=== PATIENT | female | born 1995 | race African-American/Black ===

== ENCOUNTER 2023-02-02 01:42 | Emergency (ER) | payer MEDICAID, OTHER ==
[~2023-02-02] VITALS: Ht 162.6 cm; Wt 68.0 kg
[2023-02-02 02:02] VITALS: TEMP 98.4; O2SAT 99
[2023-02-02] MEDS ORDERED: IBUPROFEN 600MG TABLET PO STA (04:13)
[2023-02-02 04:22] VITALS: BP 148/82; PULSE 111; RESP 18
[2023-02-02 04:39] LABS: BASOPHILS % 0.5 % (0.0-2.0); EOSINOPHILS % 0.5 % (0.0-5.0); HEMATOCRIT. 39.9 % (36.0-48.0); HEMOGLOBIN. 12.9 g/dL (12.0-16.0); LYMPHOCYTES % 36.6 % (20.0-50.0); MEAN CORPUSCULAR HEMOGLOBIN 29.5 pg (28.0-32.0); MEAN CORPUSCULAR HGB CONC 32.3 g/dL (31.0-37.0); MEAN CORPUSCULAR VOLUME 91.4 fL (81.0-99.0); MEAN PLATELET VOLUME 7.1 fl (7.4-10.4); MONOCYTES % 9.6 % (2.0-8.0); NEUTROPHILS % 52.8 % (40.0-76.0); PLATELET 347 x1000/uL (130-400); RED BLOOD CELL COUNT 4.37 mill/uL (4.2-5.4); RED CELL DISTRIBUTION WIDTH 13.2 % (11.6-14.6); WHITE BLOOD COUNT 5.6 x1000/uL (4.5-11.0)
[2023-02-02 04:47] LABS: CALCIUM 9.1 mg/dL (8.5-10.1); CHLORIDE 105 mEq/L (98-107); INDEX HEMOLYSI 1 (1-3); INDEX ICTERIC 1 (1-4); INDEX LIPEMIC 1 (1-3); POTASSIUM 3.6 mEq/L (3.5-5.1); SODIUM 138 mEq/L (136-145)
[2023-02-02 04:51] LABS: CARBON DIOXIDE 28 mEq/L (21-32); CREATININE 0.8 mg/dL (0.6-1.3); GLUCOSE 89 mg/dL (70-105); UREA NITROGEN BLOOD 16 mg/dL (7-21)
[2023-02-02 04:54] LABS: HCG SCREEN NEGATIVE
== END 2023-02-02 05:13 | disposition left against medical advice (07) ==
LOC: ER 01:42
DX: M79.603 Pain in arm, unspecified (principal); Z53.21 Procedure and treatment not carried out due to patient leaving prior to being seen by health care provider
CPT/HCPCS: 80048; 84703; 85025; 36415; 71045; 99281; Z7610

== ENCOUNTER 2025-04-02 04:43 | Emergency (ER) | payer MEDICAID ==
[~2025-04-02] VITALS: Ht 165.1 cm; Wt 125.2 kg
[2025-04-02 04:51] VITALS: O2SAT 100
[2025-04-02] MEDS ORDERED: IBUP-1455 MT (05:41)
[2025-04-02] MEDS: KETOROLAC 30MG/ML VIAL IM ONE (06:04)
[2025-04-02 06:06] VITALS: BP 131/73; PULSE 97; RESP 18; TEMP 36.9; O2SAT 100
== END 2025-04-02 06:11 | disposition home or self-care (01) ==
LOC: ER 04:43
DX: S90.01XA Contusion of right ankle, initial encounter (principal); X50.1XXA Overexertion from prolonged static or awkward postures, initial encounter; Y93.89 Activity, other specified; Y92.89 Other specified places as the place of occurrence of the external cause; Y99.8 Other external cause status
CPT/HCPCS: 99283; 81025; 73610; 96372; J1885